=== PATIENT | male | born 1955 | race Two or more races ===

== ENCOUNTER 2019-09-03 13:11 | Outpatient (CLI) | payer MEDICARE, BC ==
[~2019-09-03] VITALS: Ht 167.6 cm; Wt 65.3 kg
[2019-09-03 13:26] VITALS: BP 125/50
--- NOTE | 2019-09-04 | Consultation ---
DATE OF CONSULTATION: 09/03/2019 CONSULTING PHYSICIAN: Harris Godoy MD. CHIEF COMPLAINT: Weight loss. HISTORY OF PRESENT ILLNESS: This is a very pleasant 64-year-old [place] male with past medical history of diabetes. Apparently, he has been losing weight. He ran out by almost 20 pounds, slowly gradually gaining some of the weight. Denies any significant abdominal pain. No nausea. No vomiting. No dysphagia. No odynophagia. He never had endoscopy and no colonoscopy. PAST MEDICAL HISTORY: History of diabetes. PAST SURGICAL HISTORY: History of leg varicose vein surgery. MEDICATIONS: Glipizide, metformin, and Januvia. FAMILY HISTORY: No family history of GI malignancies. SOCIAL HISTORY: The patient denies any tobacco, alcohol, or IV drug abuse. ALLERGIES: No known drug allergies. REVIEW OF SYSTEMS: Grossly except for weight loss has been negative. PHYSICAL EXAMINATION: VITAL SIGNS: Temperature 98.7, pulse 67, respirations 20, blood pressure 125/50. HEENT: Normocephalic and atraumatic. Sclerae anicteric. NECK: Supple. No evidence of obvious lymphadenopathy. CARDIOVASCULAR: Regular rate and rhythm. Plus S1, S2. No obvious murmur. LUNGS: Clear to auscultation bilaterally. ABDOMEN: Positive bowel sounds. Soft and nontender. No rebound. No guarding. No peritoneal sign. EXTREMITIES: No cyanosis. No clubbing. No edema. ASSESSMENT AND PLAN: This is a 64-year-old male. He never had a colonoscopy, so needs a screening colonoscopy. He also complained of weight loss of unknown etiology. Plan to do EGD and colonoscopy. The patient was given instruction for colonoscopy. The risks and benefits of procedure were explained to him. He will call us for scheduling. If the above is negative, we will be recommending doing CT scan for evaluation of weight loss. We will also recommend getting lab on the procedure day including thyroid panel, CBC, CMP, and tumor markers. Harris Godoy M.D. DR: Ana JOB#: [id number] CC:
[2019-09-04] MEDS ORDERED: METFORMIN HCL1000 M1 ORAL (15:40)
[2019-09-04] MEDS ORDERED: JANUVIA50 MG ORAL (15:40)
[2019-09-04] MEDS ORDERED: GLIMEPIRIDE1 MG ORAL (15:40)
== END 2019-09-03 15:11 | disposition home or self-care (01) ==
LOC: PAN 13:11
DX: R63.4 Abnormal weight loss (principal); E11.9 Type 2 diabetes mellitus without complications; Z79.84 Long term (current) use of oral hypoglycemic drugs; Z79.899 Other long term (current) drug therapy; Z68.23 Body mass index [BMI] 23.0-23.9, adult
CPT/HCPCS: G0463